=== PATIENT | male | born 1970 | race Caucasian/White ===

== ENCOUNTER 2018-10-15 08:40 | Emergency (ER) | payer OTHER ==
[~2018-10-15] VITALS: Ht 175.3 cm; Wt 74.8 kg
[2018-10-15] MEDS ORDERED: BETAMETHASONE D15 G3 TOP (09:35)
[2018-10-15] MEDS ORDERED: PREDNISONE10 MG PO (09:35)
[2018-10-15] MEDS ORDERED: BENADRYL50 MG PO (09:35)
== END 2018-10-15 10:03 | disposition home or self-care (01) ==
LOC: ER 08:40
DX: T78.49XA Other allergy, initial encounter (principal); X58.XXXA Exposure to other specified factors, initial encounter; L20.89 Other atopic dermatitis

== ENCOUNTER 2019-02-21 03:16 | Emergency (ER) | payer OTHER ==
[~2019-02-21] VITALS: Ht 175.3 cm; Wt 74.8 kg
[~2019-02-21 03:16] MED LIST: BENADRYL50 MG PO; BETAMETHASONE D15 G3 TOP; PREDNISONE10 MG PO
[2019-02-21] MEDS ORDERED: ZYRTEC10 MG PO (07:03)
[2019-02-21] MEDS ORDERED: MEDROLPACK PO (07:03)
== END 2019-02-21 07:34 | disposition home or self-care (01) ==
LOC: ER 03:16
DX: L30.8 Other specified dermatitis (principal); R21 Rash and other nonspecific skin eruption